=== PATIENT | male | born 1985 | race African-American/Black ===

== ENCOUNTER 2017-11-07 19:02 | Emergency (ER) | payer MEDICAID, OTHER ==
[~2017-11-07] VITALS: Ht 203.2 cm; Wt 88.5 kg
[~2017-11-07 19:02] MED LIST: LORA5TAB9 PO
[2017-11-07 19:11] VITALS: BP 125/79
== END 2017-11-07 19:58 | disposition home or self-care (01) ==
LOC: ER 19:10
DX: M25.562 Pain in left knee (principal); G89.29 Other chronic pain; J45.909 Unspecified asthma, uncomplicated; F17.200 Nicotine dependence, unspecified, uncomplicated
CPT/HCPCS: 99282; 99406; A4606; Z7610